=== PATIENT | male | born 2000 | race Caucasian/White ===

== ENCOUNTER 2023-02-26 23:17 | Inpatient (IN) | payer OTHER ==
[~2023-02-26] VITALS: Ht 172.7 cm; Wt 58.1 kg
[2023-02-26 23:41] VITALS: BP 127/76; PULSE 87; RESP 16; TEMP 98.3; O2SAT 98
[2023-02-27] MEDS ORDERED: ONDANSETRON 4 MG/2 ML VIAL IVP ONE (00:40)
[2023-02-27] MEDS ORDERED: MORPHINE SULFATE 4 MG/ML SYR IVP ONE (00:40)
[2023-02-27 01:29] LABS: HEMATOCRIT 35.8 % (36-52); MEAN CORPUSCULAR HEMOGLOBIN 19 pg (27-31); MEAN CORPUSCULAR HGB CONC 31 g/dL (33-37); MEAN CORPUSCULAR VOLUME 60.9 fL (80-94); PLATELET COUNT (AUTO) 254 K/uL (140-450); RED BLOOD CELL COUNT(AUTO) 5.87 MIL/uL (4.20-6.10); RED CELL DISTRIBUTION WIDTH 14.8 % (11.6-13.7)
[2023-02-27] MEDS ORDERED: MORPHINE SULFATE 4 MG/ML SYR ONE (01:43)
[2023-02-27] MEDS ORDERED: ONDANSETRON 4 MG/2 ML VIAL ONE ×3 (01:44→13:41)
[2023-02-27 01:49] LABS: ANION GAP 10.1 (8-16); CALCIUM 8.2 mg/dL (8.5-10.1); CARBON DIOXIDE 26.3 mmol/L (21-32); CREATININE 0.8 mg/dL (0.6-1.3); POTASSIUM 3.4 mmol/L (3.5-5.1)
[2023-02-27 02:06] LABS: ANISOCYTOSIS 1+; HYPOCHROMASIA 1+; LYMPHOCYTES % (MANUAL) 8 % (20-46); MONOCYTES % (MANUAL) 4 % (5-12)
[2023-02-27 02:37] LABS: INR 0.99 (0.8-1.2); PARTIAL THROMBOPLASTIN TIME 25.6 secs (22-35.6); PROTHROMBIN TIME 10.4 secs (10.8-13.4)
[2023-02-27] MEDS ORDERED: MORPHINE SULFATE 2 MG/ML SYR IVP PRN (02:55)
[2023-02-27 03:01] VITALS: O2SAT 98
[2023-02-27] MEDS: HYDROmorphone PFS 2 MG/ML SYR IVP PRN ×2 (06:00→21:39)
[2023-02-27] MEDS ORDERED: LISD30TA PO (06:10)
[2023-02-27 08:00] VITALS: BP 152/62; PULSE 78; RESP 17; TEMP 98.1; O2SAT 100
[2023-02-27 08:49] LABS: BASOPHILS % (AUTO) 0.3 % (0.0-2.0); EOSINOPHILS % (AUTO) 0.3 % (0.0-4.0); HEMATOCRIT 33.7 % (36-52); HEMOGLOBIN 10.6 g/dL (12.0-18.0); LYMPHOCYTES # (AUTO) 3.3 K/uL (2.0-11.5); LYMPHOCYTES % (AUTO) 26.2 % (20.5-51.1); MEAN CORPUSCULAR HEMOGLOBIN 19 pg (27-31); MEAN CORPUSCULAR HGB CONC 32 g/dL (33-37); MEAN CORPUSCULAR VOLUME 60.4 fL (80-94); MONOCYTES # (AUTO) 0.9 K/uL (0.8-1.0); MONOCYTES % (AUTO) 7.6 % (1.7-9.3); NEUTROPHILS # (AUTO) 8.2 K/uL (1.8-7.7); NEUTROPHILS % (AUTO) 65.6 % (42.2-75.2); PLATELET COUNT (AUTO) 221 K/uL (140-450); RED BLOOD CELL COUNT(AUTO) 5.58 MIL/uL (4.20-6.10); RED CELL DISTRIBUTION WIDTH 15.1 % (11.6-13.7); WHITE BLOOD COUNT (AUTO) 12.5 K/uL (4.8-10.8)
[2023-02-27] MEDS: HYDROcodone/APAP 7.5/325 MG 1 TAB PO PRN ×2 (09:03→20:10)
[2023-02-27 09:50] LABS: ALBUMIN 3.7 g/dL (3.4-5.0); ANION GAP 9.7 (8-16); CALCIUM 8.2 mg/dL (8.5-10.1); CARBON DIOXIDE 27.9 mmol/L (21-32); CREATININE 0.7 mg/dL (0.6-1.3); POTASSIUM 3.6 mmol/L (3.5-5.1); TOTAL BILIRUBIN 2.2 mg/dL (0.0-1.0); TOTAL PROTEIN, SERUM 7.4 g/dL (6.4-8.2)
[2023-02-27] MEDS ORDERED: ceFAZolin 2,000 MG VIAL ONE ×2 (12:49→13:00)
[2023-02-27] MEDS ORDERED: BUPIVACAINE-MPF 0.25% 30 ML VIAL INJ ONE (12:50)
[2023-02-27] MEDS ORDERED: METOCLOPRAMIDE 10 MG/2 ML INJ VIAL ONE ×2 (13:00→13:41)
[2023-02-27] MEDS ORDERED: fentaNYL citrate 0.05 MG/ML - 50mL vial IV ONE (13:00)
[2023-02-27] MEDS ORDERED: SEVOFLURANE 250 ML BTL INH ONE (13:00)
[2023-02-27] MEDS ORDERED: MIDAZOLAM 2 MG/2 ML VIAL ONE ×2 (13:00→13:12)
[2023-02-27] MEDS ORDERED: KETOROLAC 30 MG/ML VIAL ONE (13:00)
[2023-02-27] MEDS ORDERED: DEXAMETHASONE 4 MG/ML VIAL ONE ×2 (13:00→13:41)
[2023-02-27] MEDS ORDERED: PROPOFOL 200 MG/20 ML VIAL IV ONE ×2 (13:00→13:12)
[2023-02-27] MEDS ORDERED: fentaNYL citrate 0.05 MG/ML VIAL ONE (13:12)
[2023-02-27] MEDS ORDERED: ONDANSETRON 4 MG/2 ML VIAL IVP PRN (13:55)
[2023-02-27] MEDS ORDERED: ePHEDrine 50 MG/ML VIAL ONE (14:03)
[2023-02-27] MEDS: HYDROmorphone 1 MG/ML AMP IVP PRN ×4 (14:55→15:25)
[2023-02-27 16:00] VITALS: BP 144/76; PULSE 69; RESP 16; TEMP 98.5; O2SAT 100
[2023-02-27 20:00] VITALS: BP_SYST 146; BP_SYST 152; BP_DIAS 62; BP_DIAS 75; PULSE 78; PULSE 92; RESP 17; TEMP 98.1; TEMP 98.9; O2SAT 100
[2023-02-27] MEDS: ceFAZolin Sod. 2,000 MG in DEXTROSE 5% 100 ML IV SCH (20:09)
[2023-02-27] MEDS: DEXT 5% / NACL 0.45% 1,000 ML IV SCH ×2 (20:14→23:45)
[2023-02-28] MEDS: HYDROcodone/APAP 7.5/325 MG 1 TAB PO PRN ×3 (03:32→18:42)
[2023-02-28 04:00] VITALS: BP 139/75; PULSE 71; RESP 17; TEMP 98.2; O2SAT 100
[2023-02-28] MEDS: ceFAZolin Sod. 2,000 MG in DEXTROSE 5% 100 ML IV SCH ×2 (05:00→12:31)
[2023-02-28 06:09] LABS: HEMATOCRIT 31.9 % (36-52); HEMOGLOBIN 9.9 g/dL (12.0-18.0); LYMPHOCYTES % (AUTO) 15.3 % (20.5-51.1); MEAN CORPUSCULAR HEMOGLOBIN 19 pg (27-31); MEAN CORPUSCULAR HGB CONC 31 g/dL (33-37); MEAN CORPUSCULAR VOLUME 60.9 fL (80-94); MONOCYTES # (AUTO) 1.6 K/uL (0.8-1.0); MONOCYTES % (AUTO) 12.4 % (1.7-9.3); NEUTROPHILS # (AUTO) 9.3 K/uL (1.8-7.7); NEUTROPHILS % (AUTO) 72.3 % (42.2-75.2); PLATELET COUNT (AUTO) 217 K/uL (140-450); RED BLOOD CELL COUNT(AUTO) 5.24 MIL/uL (4.20-6.10); RED CELL DISTRIBUTION WIDTH 15.2 % (11.6-13.7); WHITE BLOOD COUNT (AUTO) 12.8 K/uL (4.8-10.8)
[2023-02-28 06:25] LABS: ALBUMIN 3.5 g/dL (3.4-5.0); ANION GAP 8.8 (8-16); CALCIUM 8.3 mg/dL (8.5-10.1); CREATININE 0.7 mg/dL (0.6-1.3); POTASSIUM 3.8 mmol/L (3.5-5.1); TOTAL BILIRUBIN 2.2 mg/dL (0.0-1.0); TOTAL PROTEIN, SERUM 7.3 g/dL (6.4-8.2)
[2023-02-28] MEDS ORDERED: DOCUSATE 100 MG/10 ML UDC GT PRN (07:55)
[2023-02-28 08:00] VITALS: BP 139/79; PULSE 72; PULSE 92; RESP 17; RESP 20; TEMP 97.4; O2SAT 100
[2023-02-28] MEDS ORDERED: ASPIRIN 325 MG TABEC PO SCH (09:00)
[2023-02-28] MEDS: ECOTRIN 81 MG TABEC PO SCH ×2 (09:16→20:24)
[2023-02-28] MEDS: HYDROmorphone PFS 2 MG/ML SYR IVP PRN (09:18)
[2023-02-28] MEDS: DEXT 5% / NACL 0.45% 1,000 ML IV SCH (09:24)
[2023-02-28 16:00] VITALS: BP 137/81; PULSE 72; RESP 20; TEMP 98.8; O2SAT 98
[2023-02-28 20:00] VITALS: BP 135/80; PULSE 92; PULSE 97; RESP 17; RESP 20; TEMP 98.1; O2SAT 100; O2SAT 98
[2023-02-28] MEDS: FAMOTIDINE 20 MG/2 ML VIAL IV SCH (20:24)
[2023-03-01] MEDS: HYDROcodone/APAP 7.5/325 MG 1 TAB PO PRN ×2 (00:47→11:24)
[2023-03-01 04:00] VITALS: BP 138/82; PULSE 98; RESP 20; TEMP 97.8; O2SAT 100
[2023-03-01] MEDS: HYDROmorphone PFS 2 MG/ML SYR IVP PRN (06:32)
[2023-03-01 07:01] LABS: BASOPHILS # (AUTO) 0.1 K/uL (0.00-0.22); BASOPHILS % (AUTO) 0.4 % (0.0-2.0); EOSINOPHILS # (AUTO) 0.1 K/uL (0-0.4); HEMOGLOBIN 10.3 g/dL (12.0-18.0); LYMPHOCYTES # (AUTO) 3.9 K/uL (2.0-11.5); LYMPHOCYTES % (AUTO) 26.8 % (20.5-51.1); MEAN CORPUSCULAR HEMOGLOBIN 19 pg (27-31); MEAN CORPUSCULAR HGB CONC 31 g/dL (33-37); MEAN CORPUSCULAR VOLUME 60.9 fL (80-94); MONOCYTES # (AUTO) 1.3 K/uL (0.8-1.0); NEUTROPHILS # (AUTO) 9.2 K/uL (1.8-7.7); NEUTROPHILS % (AUTO) 62.8 % (42.2-75.2); PLATELET COUNT (AUTO) 234 K/uL (140-450); RED BLOOD CELL COUNT(AUTO) 5.42 MIL/uL (4.20-6.10); RED CELL DISTRIBUTION WIDTH 15.2 % (11.6-13.7); WHITE BLOOD COUNT (AUTO) 14.7 K/uL (4.8-10.8)
[2023-03-01 07:25] LABS: ALBUMIN 3.4 g/dL (3.4-5.0); ANION GAP 11.4 (8-16); CALCIUM 8.7 mg/dL (8.5-10.1); CARBON DIOXIDE 27.3 mmol/L (21-32); CREATININE 0.7 mg/dL (0.6-1.3); POTASSIUM 3.7 mmol/L (3.5-5.1); TOTAL BILIRUBIN 1.9 mg/dL (0.0-1.0); TOTAL PROTEIN, SERUM 7.5 g/dL (6.4-8.2)
[2023-03-01] MEDS ORDERED: ASPI-1129 PO (07:55)
[2023-03-01] MEDS ORDERED: ACET-9525 PO (07:55)
[2023-03-01 08:00] VITALS: PULSE 88; RESP 18; O2SAT 98
[2023-03-01] MEDS: ECOTRIN 81 MG TABEC PO SCH (09:34)
[2023-03-01] MEDS: FAMOTIDINE 20 MG/2 ML VIAL IV SCH (09:34)
== END 2023-03-01 16:10 | disposition home health service (06) | DRG 481 ==
LOC: MED 23:17 → MTU 02-27 02:56
PROVIDERS: ADMIT Family Medicine; ATTEND Family Medicine
PROC: 0QS606Z Reposition Right Upper Femur with Intramedullary Internal Fixation Device, Open Approach (ICD-10-PCS; principal; 2023-02-27 13:00)
DX: S72.141A Displaced intertrochanteric fracture of right femur, initial encounter for closed fracture (principal); R65.10 Systemic inflammatory response syndrome (SIRS) of non-infectious origin without acute organ dysfunction; F90.9 Attention-deficit hyperactivity disorder, unspecified type; W18.39XA Other fall on same level, initial encounter; Y93.89 Activity, other specified; Y92.89 Other specified places as the place of occurrence of the external cause; Y99.8 Other external cause status
CPT/HCPCS: 36415; 73502; 80048; 80053; 85025; 85610; 85730; 87081; 96374; 96375; 97116; 97163-GP; 99285; J0690; J1100; J1170; J1885; J2250; J2270; J2405; J2704; J2765; J3010; J3490; J7060; Q0092